=== PATIENT | female | born 1975 | race Caucasian/White ===

== ENCOUNTER 2017-05-30 05:34 | Day surgery (SDC) | payer OTHER ==
[~2017-05-30] VITALS: Ht 165.1 cm; Wt 79.4 kg
[~2017-05-30 05:34] MED LIST: BUSPAR15 MG PO; CIPRO500 MG PO; CITALOPRAM HBR40 MG PO; ENDOCET 5-3251 EACH PO; IBUPROFEN800 MG PO; Motrin PO; Proair HFA IH; TRI-SPRINTEC1 EACH PO
[2017-05-30 05:55] VITALS: BP 111/65
[2017-05-30 08:58] VITALS: BP 110/68
[2017-05-30 09:50] VITALS: BP 119/64
== END 2017-05-30 10:03 | disposition home or self-care (01) ==
LOC: SDC 05:34
DX: N93.8 Other specified abnormal uterine and vaginal bleeding (principal); R10.2 Pelvic and perineal pain; D25.9 Leiomyoma of uterus, unspecified; N85.4 Malposition of uterus; F32.9 Major depressive disorder, single episode, unspecified; F41.9 Anxiety disorder, unspecified; Z83.3 Family history of diabetes mellitus; Z82.5 Family history of asthma and other chronic lower respiratory diseases; Z82.49 Family history of ischemic heart disease and other diseases of the circulatory system; Z80.8 Family history of malignant neoplasm of other organs or systems
CPT/HCPCS: J0690; J1100; J1885; J2250; J2405; J3010; Q0175